=== PATIENT | male | born 1960 | race Caucasian/White ===

== ENCOUNTER → 2021-03-13 | Day surgery (SDC) | payer OTHER ==
[~2021-03-13] VITALS: Ht 175.3 cm; Wt 107.0 kg
[~2021-03-13] MED LIST: ASCORBIC ACID500 MG PO; ASPIRIN81 MG PO; COZAAR50 MG PO; LIPITOR 10MG TA10 MG PO; NITROQUIK SL0.4 MG SL; SLOW-MAG71.5 MG PO; VITAMIN D350 MC3 PO; ZINC50 M1 PO
[2021-03-13 09:12] LABS: HCT 45.6 % (42.0-52.0); HGB 15.7 g/dl (13.2-18.0); MCH 32.6 pg (25.0-31.0); MCHC 34.4 g/dL (32.0-36.0); MCV 94.8 fL (78.0-100.0); MPV 9.6 fL (6.0-9.5); RBC 4.81 M/uL (4.70-6.00); RDW 12.1 % (11.5-14.0); WBC 5.8 K/uL (4.0-10.5)
[2021-03-13 09:44] LABS: ALBUMIN 4.3 g/dL (3.4-5.0); BILIRUBIN - TOTAL 0.5 mg/dL (0.2-1.0); GLOBULIN (CALCULATION) 3.3 g/dL; POTASSIUM 3.8 mmol/L (3.5-5.1); TOTAL PROTEIN 7.6 g/dL (6.4-8.2)
== END | disposition home or self-care (01) ==
LOC: FAS 08:04
PROVIDERS: Surgery
DX: Z12.11 Encounter for screening for malignant neoplasm of colon (principal); K57.30 Diverticulosis of large intestine without perforation or abscess without bleeding; I10 Essential (primary) hypertension; Z87.891 Personal history of nicotine dependence; Z79.82 Long term (current) use of aspirin; Z79.899 Other long term (current) drug therapy
CPT/HCPCS: 36415; 80053; J7120